=== PATIENT | male | born 1945 | race Caucasian/White ===

== ENCOUNTER 2017-01-18 20:31 | Inpatient (IN) | payer OTHER, MEDICARE ==
--- NOTE | 2017-01-18 21:05 | UCPHY ---
H & P Patient Type: Established Chief Complaint Nursing Narrative: fever at home today, family member states he seems more confused today then usual and has a smell to his urine for 3 weeks Time Seen by Provider: 01/18/17 20:54 HPI/ROS: Chief Complaint: Fever, confusion, foul-smelling urine HPI: 72-year-old male with a history of Parkinson's disease and Lewy body dementia presenting with increasing confusion today, fever to 101.6 and foul- smelling urine. Patient has a suprapubic catheter which was placed last March. It was last changed 2 weeks ago. At baseline patient is normally ambulatory and conversant. Today's had decreased mobility and has been very somnolent with increased confusion. No falls or injuries. No cough or shortness of breath. Has denies any chest pain. Patient also has a history of PEs in the past and is on warfarin. ROS: 10 point Review of Systems is negative except as noted in the HPI. PMH: PE, Parkinson's disease, Lewy body dementia, urinary retention status post suprapubic catheter placement Social History: No smoking, no alcohol, no recreational drug use Family History: non-contributory Physical Exam: Gen: Awake, Alert, confused but conversant HEENT: Nose: no rhinorrhea Eyes: PERRLA, EOMI Mouth: Dry mucosa Neck: Supple, no JVD Chest: nontender, lungs clear to auscultation Heart: S1, S2 normal, no murmur Abd: Soft, non-tender, no guarding, suprapubic catheter has some crusting discharge without erythema Back: no CVA tenderness, no midline tenderness Ext: no edema, non-tender Skin: no rash Neuro: CN II-XII intact, Sensation grossly intact, Strength 5/5 in bilateral upper and lower extremities - Personal History Tetanus Vaccine Date: 2010 - Medical/Surgical History Hx Asthma: No Hx Chronic Respiratory Disease: No Hx Diabetes: No Hx Cardiac Disease: No Hx Renal Disease: No Hx Cirrhosis: No Hx Alcoholism: No Hx HIV/AIDS: No Hx Splenectomy or Spleen Trauma: No Other PMH: PE, dementia - Family History Significant Family History: No pertinent family hx - Social History Smoking Status: Never smoked Constitutional: Initial Vital Signs Temperature (C) 37.6 C 01/18/17 20:51 Heart Rate 77 01/18/17 20:51 Respiratory Rate 22 H 01/18/17 20:51 Blood Pressure 156/101 H 01/18/17 20:51 O2 Sat (%) 94 01/18/17 20:51 O2 Delivery Mode Room Air Allergies/Adverse Reactions: sertraline Allergy (Intermediate, Verified 02/12/16 12:58) tamsulosin HCl [From Flomax] Allergy (Intermediate, Verified 02/12/16 12:58) NARCOTICS Allergy (Severe, Uncoded 04/01/16 18:10) Other-Enter Comments Home Medications: Medication Instructions Recorded Multivitamins [Multivitamin (*)] 1 each PO DAILY 02/13/16 Warfarin Sodium [Coumadin 5MG (*)] 2.5 mg PO MARTINEZ@16 03/16/16 Warfarin Sodium [Coumadin 5MG (*)] 5 mg PO MOTUWETHFRSA@16 03/16/16 Lovastatin 20 mg PO DAILY 04/01/16 [place]-3 Fatty Acids [Fish Oil 1000 1,000 mg PO DAILY 04/01/16 mg (*)] Medical Decision Making ED Course/Re-evaluation: Urinalysis is noted. Patient has leukocytosis. Findings consistent with urinary tract infection. Is not currently meet SIRS criteria and is not septic. He does however febrile and has mental status changes. I have discussed with Dr. Angelo, hospitalist at [facility]. She will admit to her service. She is requesting ertapenem IV now. I also changes suprapubic catheter. Patient to be admitted to [facility] bed. - Data Points Laboratory Results: Laboratory Results 01/18/17 21:10 01/18/17 21:10 01/18/17 01/18/17 01/18/17 21:10 21:10 21:10 WBC RBC Hgb Hct MCV MCH MCHC RDW Plt Count MPV Neut % (Auto) Lymph % (Auto) [place] % (Auto) Eos % (Auto) Baso % (Auto) Nucleat RBC Rel Count Absolute Neuts (auto) Absolute Lymphs (auto) Absolute Monos (auto) Absolute Eos (auto) Absolute Basos (auto) Absolute Nucleated RBC Immature Gran % Immature Gran # PT 25.8 SEC H SEC (12.0-15.0) INR 2.38 H (0.83-1.16) APTT 40.7 SEC H SEC (23.0-38.0) Sodium 140 mEq/L mEq/L (134-144) Potassium 4.0 mEq/L mEq/L (3.5-5.2) Chloride 102 mEq/L mEq/L (97-110) Carbon Dioxide 25 mEq/l mEq/l (22-31) Anion Gap 13 mEq/L mEq/L (8-16) BUN 12 mg/dL mg/dL (7-23) Creatinine 0.8 mg/dL mg/dL (0.7-1.3) Estimated GFR > 60 Glucose 97 mg/dL mg/dL (70-100) Calcium 8.8 mg/dL mg/dL (8.5-10.4) Urine Color YELLOW Urine Appearance HAZY Urine pH 7.0 (5.0-7.5) Ur Specific [place] 1.010 (1.002-1.030) Urine Protein TRACE H (NEGATIVE) Urine Ketones NEGATIVE (NEGATIVE) Urine Blood 3+ H (NEGATIVE) Urine Nitrate POSITIVE H (NEGATIVE) Urine Bilirubin NEGATIVE (NEGATIVE) Urine Urobilinogen 0.2 EU EU (0.2-1.0) Ur Leukocyte Esterase 3+ H (NEGATIVE) Urine RBC 25-50 /hpf H /hpf (0-3) Urine WBC 50-182 /hpf H /hpf (0-3) Ur Epithelial Cells NONE SEEN /lpf /lpf (NONE-1+) Urine Bacteria 3+ /hpf H /hpf (NONE SEEN) Ur Culture Indicated? INDICATED H (NI) Urine Glucose NEGATIVE (NEGATIVE) 01/18/17 21:10 WBC 13.62 10^3/uL H 10^3/uL (3.80-9.50) RBC 4.62 10^6/uL 10^6/uL (4.40-6.38) Hgb 14.3 g/dL g/dL (13.7-17.5) Hct 41.0 % % (40.0-51.0) MCV 88.7 fL fL (81.5-99.8) MCH 31.0 pg pg (27.9-34.1) MCHC 34.9 g/dL g/dL (32.4-36.7) RDW 13.7 % % (11.5-15.2) Plt Count 223 10^3/uL 10^3/uL (150-400) MPV 9.6 fL fL (8.7-11.7) Neut % (Auto) 81.0 % H % (39.3-74.2) Lymph % (Auto) 9.7 % L % (15.0-45.0) [place] % (Auto) 8.6 % % (4.5-13.0) Eos % (Auto) 0.1 % L % (0.6-7.6) Baso % (Auto) 0.2 % L % (0.3-1.7) Nucleat RBC Rel Count 0.0 % % (0.0-0.2) Absolute Neuts (auto) 11.03 10^3/uL H 10^3/uL (1.70-6.50) Absolute Lymphs (auto) 1.32 10^3/uL 10^3/uL (1.00-3.00) Absolute Monos (auto) 1.17 10^3/uL H 10^3/uL (0.30-0.80) Absolute Eos (auto) 0.02 10^3/uL L 10^3/uL (0.03-0.40) Absolute Basos (auto) 0.03 10^3/uL 10^3/uL (0.02-0.10) Absolute Nucleated RBC 0.00 10^3/uL 10^3/uL (0-0.01) Immature Gran % 0.4 % % (0.0-1.1) Immature Gran # 0.05 10^3/uL 10^3/uL (0.00-0.10) PT INR APTT Sodium Potassium Chloride Carbon Dioxide Anion Gap BUN Creatinine Estimated GFR Glucose Calcium Urine Color Urine Appearance Urine pH Ur Specific [place] Urine Protein Urine Ketones Urine Blood Urine Nitrate Urine Bilirubin Urine Urobilinogen Ur Leukocyte Esterase Urine RBC Urine WBC Ur Epithelial Cells Urine Bacteria Ur Culture Indicated? Urine Glucose Medications Given: Discontinued Medications Acetaminophen (Tylenol) 650 mg PO ONCE ONE Stop: 01/18/17 22:20 Last Admin: 01/18/17 22:10 Dose: 650 mg Ertapenem 1 gm/ Sodium (Chloride) 100 mls @ 200 mls/hr IV EDNOW ONE PRN Reason: Protocol Stop: 01/18/17 22:17 Last Admin: 01/18/17 21:55 Dose: 100 mls Departure - Departure Disposition: [facility] Acute Clinical Impression: Urinary tract infection Condition: Fair - PQRS PQRS Measurement: 134: Depression screening and followup, PRIME MD-PHQ2 (12 years and older) Over the last 2 weeks, how often have you been bothered by any of the following problems? 1. Feeling down, depressed, or hopeless? 2. Little interest or pleasure in doing things? Patient answered no to both 1 and 2 130: Documentation of medications. Reviewed all patient medications, doses, route and frequency. 226: Do you smoke? No. 47: 65 and older: Advanced care planning. Patient designates surrogate decision maker as spouse . Patient has advanced directive. 51: 18 years old and older with diagnosis of COPD, spirometry performance. Patient has no history of COPD 52: 18 years old and older with COPD and symptoms of COPD or FEV1<60% predicted prescribed a B Agonist. Spirometry not performed; equipment not available.
[2017-01-18 21:18] LABS: % IMMATURE GRANULYOCYTES 0.4 % (0.0-1.1); ABSOLUTE IMMATURE GRANULOCYTES 0.05 10^3/uL (0.00-0.10); ADD DIFF? NO; ADD MORPH? NO; ADD SCAN? NO; ATYPICAL LYMPHOCYTE FLAG 0 (0-99); FRAGMENT RBC FLAG 0 (0-99); HEMOGLOBIN 14.3 g/dL (13.7-17.5); LEFT SHIFT FLG 0 (0-99); LIPEMIA HEMOLYSIS FLAG 90 (0-99); MEAN CELL HEMOGLOBIN CONCENTR. 34.9 g/dL (32.4-36.7); MEAN CELL VOLUME 88.7 fL (81.5-99.8); MEAN PLATELET VOLUME 9.6 fL (8.7-11.7); PLATELET CLUMPS FLAG 0 (0-99); PLATELET COUNT 223 10^3/uL (150-400); RED BLOOD CELL COUNT 4.62 10^6/uL (4.40-6.38); RED CELL DISTRIBUTION WIDTH 13.7 % (11.5-15.2)
[2017-01-18 21:20] LABS: COLOR YELLOW; LEUKOCYTE ESTERASE,URINE 3+ (NEGATIVE); NITRITE,URINE POSITIVE (NEGATIVE)
[2017-01-18 21:29] LABS: INR 2.38 (0.83-1.16); PROTIME(PATIENT) 25.8 SEC (12.0-15.0)
[2017-01-18 21:30] LABS: ANION GAP 13 mEq/L (8-16); APTT 40.7 SEC (23.0-38.0); CALCIUM 8.8 mg/dL (8.5-10.4); CARBON DIOXIDE 25 mEq/l (22-31); CHLORIDE 102 mEq/L (97-110); CREATININE 0.8 mg/dL (0.7-1.3); GLOMERULAR FILTRATION RATE > 60; GLUCOSE 97 mg/dL (70-100); SODIUM 140 mEq/L (134-144)
[2017-01-18 21:35] LABS: BACTERIA 3+ /hpf (NONE SEEN); RBC,URINE 25-50 /hpf (0-3); WBC,URINE 50-182 /hpf (0-3)
[2017-01-18] MEDS ORDERED: ERTAPENEM 1 GM in NS 100 ML IV ONE (21:48)
[2017-01-18] MEDS ORDERED: ACETAMINOPHEN 325 MG TAB ONE (22:08)
[2017-01-18] MEDS ORDERED: ACETAMINOPHEN 500 MG TAB PO ONE (22:19)
[2017-01-19] MEDS ORDERED: ACETAMINOPHEN 325 MG TAB PO PRN (00:48)
[2017-01-19] MEDS ORDERED: ONDANSETRON 4 MG/2 ML VIAL IVP PRN (00:48)
[2017-01-19] MEDS ORDERED: ONDANSETRON DISINTEGRATING 4 MG TAB PO PRN (00:48)
[2017-01-19] MEDS: NS 1,000 ML IV SCH ×2 (01:45→15:21)
[2017-01-19 04:48] LABS: % IMMATURE GRANULYOCYTES 0.3 % (0.0-1.1); ABSOLUTE IMMATURE GRANULOCYTES 0.03 10^3/uL (0.00-0.10); ADD DIFF? NO; ADD MORPH? NO; ADD SCAN? NO; ATYPICAL LYMPHOCYTE FLAG 20 (0-99); FRAGMENT RBC FLAG 0 (0-99); HEMATOCRIT 35.8 % (40.0-51.0); HEMOGLOBIN 12.4 g/dL (13.7-17.5); LEFT SHIFT FLG 20 (0-99); LIPEMIA HEMOLYSIS FLAG 90 (0-99); MEAN CELL HEMOGLOBIN 31.1 pg (27.9-34.1); MEAN CELL HEMOGLOBIN CONCENTR. 34.6 g/dL (32.4-36.7); MEAN CELL VOLUME 89.7 fL (81.5-99.8); MEAN PLATELET VOLUME 9.4 fL (8.7-11.7); PLATELET CLUMPS FLAG 0 (0-99); PLATELET COUNT 178 10^3/uL (150-400); RED BLOOD CELL COUNT 3.99 10^6/uL (4.40-6.38); RED CELL DISTRIBUTION WIDTH 13.5 % (11.5-15.2)
--- NOTE | 2017-01-19 05:03 | PDGENHP ---
History and Physical - Chief Complaint fever, confusion - History of Present Illness Patient is a 72 year old male with Parkinson's disease, lewy body dementia and h /o PEs, on warfarin, who presents to the ED with fever, lethargy and increased confusion. Patient has a suprapubic catheter due to chronic urinary retention, placed in 03/2016 and changed every 4 weeks, most recently changed about 2 weeeks ago. Today, patient reports feeling generalized fatigue throughout the day, could only minimally participate in his scheduled PD exercise program due to this fatigue. By dinner time, patient began to exhibit signs of confusion and lethargy and did not eat much of his dinner. Shortly after this, his noticed he appeared warm/red, checked his temperature and it was noted to be 101.6F. Given this, she brought him to the ED for further evaluation. Patient and deny any recent coughing, chest congestion, chest pain, palpitation, falls, syncope, n/v/d. Suprapubic catheter had some purulent drainage around it and foul smelling urine over the past 2-3 days. On arrival to the [facility], patient was afebrile, but noted to be mildly tachypneic and tachycardic, with stable BP. Labs revealed mild leukocytosis, normal bmp and grossly positive UA. He was cultured, initiated on antibiotics and IVF and then transferred to [facility] for admission. History Information - Allergies/Home Medication List Allergies/Adverse Reactions: sertraline Allergy (Intermediate, Verified 02/12/16 12:58) tamsulosin HCl [From Flomax] Allergy (Intermediate, Verified 02/12/16 12:58) NARCOTICS Allergy (Severe, Uncoded 04/01/16 18:10) Other-Enter Comments Home Medications: Multivitamins [Multivitamin (*)] 1 each PO DAILY 02/13/16 [Last Taken 1 Day Ago] Warfarin Sodium [Coumadin 5MG (*)] 2.5 mg PO MARTINEZ@03/16/16 [Last Taken 1 Week Ago] Warfarin Sodium [Coumadin 5MG (*)] 5 mg PO MOTUWETHFRSA@03/16/16 [Last Taken 1 Week Ago] Lovastatin 20 mg PO DAILY 04/01/16 [Last Taken 04/01/16] [place]-3 Fatty Acids [Fish Oil 1000 mg (*)] 1,000 mg PO DAILY 04/01/16 [Last Taken 04/01/16] I have personally reviewed and updated: family history, medical history, social history, surgical history - Past Medical History Additional medical history: Parkinson's disease. Lewy body dementia. chronic urinary retention s/p suprapubic catheter. chronic constipation. h/o Pulmonary emboli 2002, 2006. nephrolithiasis - Surgical History Additional surgical history: L ankle fracture repair. Knee replacement. suprapubic catheter placement - Family History Positive for: non-pertinent - Social History Smoking Status: Never smoked Alcohol Use: None Drug Use: None Additional social history: Patient currently lives with , uses walker Review of Systems ROS: 10pt was reviewed & negative except for what was stated in HPI & below Physical Exam Temp Pulse Resp BP Pulse Ox 36.8 C 56 L 16 129/70 H 91 L 01/19/17 04:02 01/19/17 04:02 01/19/17 04:02 01/19/17 04:02 01/19/17 04:02 Constitutional: no apparent distress, appears nourished, not in pain Eyes: PERRL, anicteric sclera, EOMI Ears, Nose, Mouth, Throat: moist mucous membranes, hearing normal, ears appear normal, no oral mucosal ulcers Cardiovascular: regular rate and rhythym, no murmur, rub, or gallop, pulses symmetric bilaterally, No JVD, No edema Peripheral Pulses: 2+: dorsalis-pedis (R), dorsalis-pedis (L) Respiratory: no respiratory distress, no rales or rhonchi, clear to auscultation Gastrointestinal: normoactive bowel sounds, soft, non-tender abdomen, no palpable masses Genitourinary: no bladder fullness, no bladder tenderness Skin: warm, normal color, no rashes or abrasions, no fluctuance, no induration, No mottled Musculoskeletal: full muscle strength, no muscle tenderness, normal joint ROM, no joint effusions Neurologic: AAOx3, sensation intact bilaterally, CN II-XII Intact, No weakness, No numbness, No facial droop Psychiatric: interacting appropriately, not anxious, not encephalopathic, thought process linear Lab Data & Imaging Review 01/19/17 04:43 01/18/17 21:10 WBC 11.56 10^3/uL (3.80-9.50) H 01/19/17 04:43 RBC 3.99 10^6/uL (4.40-6.38) L 01/19/17 04:43 Hgb 12.4 g/dL (13.7-17.5) L 01/19/17 04:43 Hct 35.8 % (40.0-51.0) L 01/19/17 04:43 MCV 89.7 fL (81.5-99.8) 01/19/17 04:43 MCH 31.1 pg (27.9-34.1) 01/19/17 04:43 MCHC 34.6 g/dL (32.4-36.7) 01/19/17 04:43 RDW 13.5 % (11.5-15.2) 01/19/17 04:43 Plt Count 178 10^3/uL (150-400) 01/19/17 04:43 MPV 9.4 fL (8.7-11.7) 01/19/17 04:43 Neut % (Auto) 76.1 % (39.3-74.2) H 01/19/17 04:43 Lymph % (Auto) 13.5 % (15.0-45.0) L 01/19/17 04:43 [place] % (Auto) 9.6 % (4.5-13.0) 01/19/17 04:43 Eos % (Auto) 0.3 % (0.6-7.6) L 01/19/17 04:43 Baso % (Auto) 0.2 % (0.3-1.7) L 01/19/17 04:43 Nucleat RBC Rel Count 0.0 % (0.0-0.2) 01/19/17 04:43 Absolute Neuts (auto) 8.81 10^3/uL (1.70-6.50) H 01/19/17 04:43 Absolute Lymphs (auto) 1.56 10^3/uL (1.00-3.00) 01/19/17 04:43 Absolute Monos (auto) 1.11 10^3/uL (0.30-0.80) H 01/19/17 04:43 Absolute Eos (auto) 0.03 10^3/uL (0.03-0.40) 01/19/17 04:43 Absolute Basos (auto) 0.02 10^3/uL (0.02-0.10) 01/19/17 04:43 Absolute Nucleated RBC 0.00 10^3/uL (0-0.01) 01/19/17 04:43 Immature Gran % 0.3 % (0.0-1.1) 01/19/17 04:43 Immature Gran # 0.03 10^3/uL (0.00-0.10) 01/19/17 04:43 PT 25.8 SEC (12.0-15.0) H 01/18/17 21:10 INR 2.38 (0.83-1.16) H 01/18/17 21:10 APTT 40.7 SEC (23.0-38.0) H 01/18/17 21:10 VBG Lactic Acid 0.6 mmol/L (0.7-2.1) L 01/19/17 04:42 Sodium 140 mEq/L (134-144) 01/18/17 21:10 Potassium 4.0 mEq/L (3.5-5.2) 01/18/17 21:10 Chloride 102 mEq/L (97-110) 01/18/17 21:10 Carbon Dioxide 25 mEq/l (22-31) 01/18/17 21:10 Anion Gap 13 mEq/L (8-16) 01/18/17 21:10 BUN 12 mg/dL (7-23) 01/18/17 21:10 Creatinine 0.8 mg/dL (0.7-1.3) 01/18/17 21:10 Estimated GFR > 60 01/18/17 21:10 Glucose 97 mg/dL (70-100) 01/18/17 21:10 Calcium 8.8 mg/dL (8.5-10.4) 01/18/17 21:10 Urine Color YELLOW 01/18/17 21:10 Urine Appearance HAZY 01/18/17 21:10 Urine pH 7.0 (5.0-7.5) 01/18/17 21:10 Ur Specific [place] 1.010 (1.002-1.030) 01/18/17 21:10 Urine Protein TRACE (NEGATIVE) H 01/18/17 21:10 Urine Ketones NEGATIVE (NEGATIVE) 01/18/17 21:10 Urine Blood 3+ (NEGATIVE) H 01/18/17 21:10 Urine Nitrate POSITIVE (NEGATIVE) H 01/18/17 21:10 Urine Bilirubin NEGATIVE (NEGATIVE) 01/18/17 21:10 Urine Urobilinogen 0.2 EU (0.2-1.0) 01/18/17 21:10 Ur Leukocyte Esterase 3+ (NEGATIVE) H 01/18/17 21:10 Urine RBC 25-50 /hpf (0-3) H 01/18/17 21:10 Urine WBC 50-182 /hpf (0-3) H 01/18/17 21:10 Ur Epithelial Cells NONE SEEN /lpf (NONE-1+) 01/18/17 21:10 Urine Bacteria 3+ /hpf (NONE SEEN) H 01/18/17 21:10 Ur Culture Indicated? INDICATED (NI) H 01/18/17 21:10 Urine Glucose NEGATIVE (NEGATIVE) 01/18/17 21:10 Assessment & Plan Assessment: Patient is a 72/M with PD, lewy body dementia, chronic urinary retention with a suprapubic catheter who presented to [facility] with fever, altered mental status and work up revealed sepsis due to acute UTI. Plan: # sepsis secondary to UTI On presentation patient was slightly tachypneic, HR>90 and had leukocytosis on labs. UA was grossly positive, consistent with sepsis secondary to UTI. He was cultured, given appropriate IVF bolus and initiated on antibiotics. Suprapubic catheter was also changed prior to transport to [facility]. - f/u blood and urine cultures - cont ertapenem 1 g qday - cont IVF hydration with NS @ 75 cc/hr - trend cbc, lactic acid and monitor fever curve # acute encephalopathy Patient was reported to be lethargic and encephalopathic on presentation to the [facility], likely metabolic in nature due to acute infection. However, after IVF resuscitation, antibiotic administration, patient appears to be back to baseline mental status. Will cont to monitor. # h/o pulmonary emboli On coumadin, INR therapeutic. Will cont home meds and monitor INRs. # Parkinson's disease, dementia Currently managed off meds. MS now at baseline, per patient's . # chronic constipation Will initiate prn bowel regimen. # dispo: admit to observation status for mild sepsis due to uti # gen: regular diet DVT ppx: on coumadin DNR, as expressed by patient and his on admission
[2017-01-19 05:07] LABS: ANION GAP 5 mEq/L (8-16); CALCIUM 8.3 mg/dL (8.5-10.4); CARBON DIOXIDE 25 mEq/l (22-31); CHLORIDE 108 mEq/L (97-110); CREATININE 0.8 mg/dL (0.7-1.3); GLOMERULAR FILTRATION RATE > 60; GLUCOSE 100 mg/dL (70-100); INR 2.82 (0.83-1.16); MAGNESIUM 2.1 mg/dL (1.6-2.3); POTASSIUM 3.9 mEq/L (3.5-5.2); SODIUM 138 mEq/L (134-144)
[2017-01-19] MEDS ORDERED: BISACODYL 10 MG SUPP PR PRN (05:45)
[2017-01-19] MEDS ORDERED: MAGNESIUM HYDROXIDE 30 ML UDCUP PO PRN (05:45)
[2017-01-19] MEDS ORDERED: POLYETHYLENE GLYCOL 3350 17 GM PKT PO PRN (05:45)
[2017-01-19] MEDS ORDERED: NON-FORMULARY NEW DRUG (Lovastatin [Lovastatin] 20 MG) PO SCH (09:00)
[2017-01-19] MEDS: SENNOSIDES/DOCUSATE SODIUM TAB PO SCH ×2 (09:22→20:00)
[2017-01-19] MEDS: OMEGA-3 FATTY ACIDS 1,000 MG CAP PO SCH (09:22)
[2017-01-19] MEDS: MULTIVITAMINS 1 EACH TAB PO SCH (09:22)
[2017-01-19] MEDS: PRAVASTATIN SODIUM 20 MG TAB PO SCH (09:23)
--- NOTE | 2017-01-19 12:05 | HOSPPROG ---
Hospitalist Progress Note Assessment/Plan: #Severe sepsis: resolved #UTI: h/o E coli, pansensitive. Will cont ceftriaxone. Urine cx pending #Fever: last at 22:00. Blood/urine cx pending #Lewy body dementia #h/o PE: INR at goal #Leukocytosis: improved #Diet: regular #DVT: ppx: Coumadin #Disp: monitor overnight given fever, awaiting culture data. IV abx Subjective: dizzy after walk this morning Objective: Vital Signs Temp Pulse Resp BP Pulse Ox 36.8 C 55 L 18 135/77 H 94 01/19/17 08:10 01/19/17 08:10 01/19/17 08:10 01/19/17 08:10 01/19/17 08:10 Laboratory Results 01/19/17 04:43 01/19/17 04:43 01/18/17 01/19/17 01/20/17 05:59 05:59 05:59 Intake Total 1100 350 Output Total 825 Balance 275 350 PT 30.0 SEC (12.0-15.0) H 01/19/17 04:43 INR 2.82 (0.83-1.16) H 01/19/17 04:43 - Physical Exam Constitutional: no apparent distress Eyes: PERRL Ears, Nose, Mouth, Throat: moist mucous membranes Cardiovascular: regular rate and rhythym Respiratory: no respiratory distress Gastrointestinal: normoactive bowel sounds Genitourinary: other (suprapubic catheter with draining purulence. No surrounding erythema. Mild suprapubic TTP) Skin: warm Musculoskeletal: full muscle strength Neurologic: AAOx3 Psychiatric: interacting appropriately, flat affect ICD10 Worksheet Patient Problems: Problems Problem Status Onset Urinary tract infection Acute Altered mental status Acute DJD (degenerative joint disease) of knee Acute Hematuria Acute Medication reaction Acute
[2017-01-19] MEDS ORDERED: WARFARIN SODIUM 5 MG TAB PO SCH (16:00)
[2017-01-19 19:17] VITALS: RESP 16
[2017-01-20 05:18] LABS: HEMOGLOBIN 12.5 g/dL (13.7-17.5); MEAN CELL HEMOGLOBIN 31.6 pg (27.9-34.1); MEAN CELL HEMOGLOBIN CONCENTR. 34.7 g/dL (32.4-36.7); MEAN CELL VOLUME 91.1 fL (81.5-99.8); RED BLOOD CELL COUNT 3.95 10^6/uL (4.40-6.38); RED CELL DISTRIBUTION WIDTH 13.7 % (11.5-15.2)
[2017-01-20 05:35] LABS: INR 3.02 (0.83-1.16); PROTIME(PATIENT) 31.7 SEC (12.0-15.0)
[2017-01-20] MEDS: SENNOSIDES/DOCUSATE SODIUM TAB PO SCH (08:39)
[2017-01-20] MEDS: PRAVASTATIN SODIUM 20 MG TAB PO SCH (08:39)
[2017-01-20] MEDS: OMEGA-3 FATTY ACIDS 1,000 MG CAP PO SCH (08:39)
[2017-01-20] MEDS: MULTIVITAMINS 1 EACH TAB PO SCH (08:39)
[2017-01-20 08:59] VITALS: BP 133/77; PULSE 93; TEMP 98.2; O2SAT 91
--- NOTE | 2017-01-20 09:30 | HOSPPROG ---
Hospitalist Progress Note Assessment/Plan: #Severe sepsis: resolved #CAUTI- Gram negative jojo UTI: prior E coli, pansensitive. Transition to PO at DC for 7 more days #Fever: none in >24hrs Blood/urine cx pending #Lewy body dementia #h/o PE: INR at goal. Cont coumadin #Leukocytosis: resolved with abx #Diet: regular #DVT: ppx: Coumadin #Disp: DC today. I will FU culture results this weekend and ensure abx is appropriate Subjective: no fever in 24 hours Objective: Vital Signs Temp Pulse Resp BP Pulse Ox 36.8 C 93 16 133/77 H 91 L 01/20/17 08:58 01/20/17 08:58 01/20/17 08:58 01/20/17 08:58 01/20/17 08:58 Laboratory Results 01/20/17 04:30 01/19/17 01/20/17 01/21/17 05:59 05:59 05:59 Intake Total 3465 Output Total 2350 Balance 1115 PT 31.7 SEC (12.0-15.0) H 01/20/17 04:30 INR 3.02 (0.83-1.16) H 01/20/17 04:30 - Physical Exam Constitutional: no apparent distress Eyes: PERRL Ears, Nose, Mouth, Throat: moist mucous membranes Cardiovascular: regular rate and rhythym, no murmur, rub, or gallop Respiratory: no respiratory distress Gastrointestinal: normoactive bowel sounds Genitourinary: no bladder fullness, other (suprapubic catheter. No purulence) Skin: warm Musculoskeletal: full muscle strength Neurologic: AAOx3 ICD10 Worksheet Patient Problems: Problems Problem Status Onset Urinary tract infection Acute Altered mental status Acute DJD (degenerative joint disease) of knee Acute Hematuria Acute Medication reaction Acute
--- NOTE | 2017-01-20 12:54 | GDS ---
[f rep st] DISCHARGE SUMMARY DISCHARGE DIAGNOSES: 1. Severe sepsis. 2. Acute CA-UTI 3. Fever. 4. Lewy body dementia. 5. History of pulmonary embolism. 6. Leukocytosis. 7. Urinary retention with chronic suprapubic viramontes HISTORY OF PRESENT ILLNESS: The patient is a 72-year-old male with a history of Parkinson disease, Lewy body dementia, and history of pulmonary embolism, who presented to the emergency room with fevers, lethargy, and increased confusion. He has a chronic suprapubic catheter due to urinary retention that was placed in March 2016. This is changed every 2 weeks, most recently 2 weeks ago. He has had decreased energy and can only minimally participate in his scheduled physical therapy exercise program. Per his , he exhibited signs of confusion and lethargy and did not eat much of his dinner. noticed that he was more red and checked his temperature and it was 101.6. The patient denies diarrhea, nausea, or vomiting. ASSESSMENT AND PLAN: 1. Severe sepsis: resolved. Due to UTI with chronic Viramontes. Initially febrile, leukocytosis. Positive UA that was treated initially with IV antibiotics. He has been afebrile for the last 24 hours. 2. Gram-negative jojo urinary tract infection: has a history of Escherichia coli that was pansensitive. Microbiology was delayed, but they did identify gram-negative rods today. He wants to go home, so I will treat based on his last sensitivities. LQ not good choice with Coumadin interaction. Cefdinir for 7 more days for a total of 10. 3. Parkinson's. Continue home medications. 4. Lewy body dementia. Continue home medications. 5. History of pulmonary embolism. INR is 3 today. Continue with Coumadin, but recommend to his to have a followup INR on Monday as antibiotics could interact. 6. Leukocytosis secondary to urinary tract infection: This has since resolved. Blood cultures remain negative. DISPOSITION: Patient is stable for discharge. PENDING LABS: Urine culture. I will follow up on these results. If not sensitive to cefdinir, I will call and provide another prescription. This plan was discussed with his and she is agreeable. Follow up 1. INR on Monday 2. PCP in 1-2 weeks /[id number]/MODL [id number]
[2017-01-22] MEDS ORDERED: WARFARIN SODIUM 5 MG TAB PO SCH (16:00)
== END 2017-01-20 12:04 | disposition home or self-care (01) | DRG 698 ==
LOC: CED 20:31 → INTOOBSV 21:50 → CEDHOLD 21:50 → F1N 23:01 → OBSVTOIN 01-19 14:26
PROVIDERS: ADMIT Hospitalist; ATTEND Internal Medicine
DX: T83.510A Infection and inflammatory reaction due to cystostomy catheter, initial encounter (principal); A41.9 Sepsis, unspecified organism; R65.20 Severe sepsis without septic shock; N39.0 Urinary tract infection, site not specified; G31.83 Neurocognitive disorder with Lewy bodies; F02.80 Dementia in other diseases classified elsewhere, unspecified severity, without behavioral disturbance, psychotic disturbance, mood disturbance, and anxiety; R33.9 Retention of urine, unspecified; Z93.51 Cutaneous-vesicostomy status; Z79.01 Long term (current) use of anticoagulants; Z86.711 Personal history of pulmonary embolism
CPT/HCPCS: 80048-PO; 81003-PO; 81015-PO; 85025-PO; 85610-PO; 85730-PO; 96365-PO; 97166-GO; G0378; G0463-PO; G8987-GO-CI; G8988-GO-CI; J0696; J1335

== ENCOUNTER → 2017-04-24 | Outpatient (CLI) | payer OTHER, MEDICARE | LOC: FIMAGING 09:40 | PROVIDERS: ATTEND Physician Assistant Medical | DX: N20.0 Calculus of kidney (principal) ==

== ENCOUNTER → 2017-04-25 | Outpatient (CLI) | payer OTHER, MEDICARE | LOC: CIMAGING 14:14 | PROVIDERS: ATTEND Specialist | DX: N20.0 Calculus of kidney (principal); K59.00 Constipation, unspecified | CPT/HCPCS: 74176-PO ==

== ENCOUNTER → 2017-06-19 | Outpatient (CLI) | payer OTHER, MEDICARE ==
[~2017-06-19] MED LIST: IOPAMIDOL (ISOVUE-300) 100 ML BTL ONE
== END ==
LOC: CIMAGING 10:17
PROVIDERS: ATTEND Specialist
DX: R33.9 Retention of urine, unspecified (principal); R93.41 Abnormal radiologic findings on diagnostic imaging of renal pelvis, ureter, or bladder; N20.0 Calculus of kidney; N40.1 Benign prostatic hyperplasia with lower urinary tract symptoms; K80.20 Calculus of gallbladder without cholecystitis without obstruction; Z87.440 Personal history of urinary (tract) infections; Z96.0 Presence of urogenital implants
CPT/HCPCS: 74178; Q9967; 82565-PO